=== PATIENT | female | born 2000 | race African-American/Black ===

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

== ENCOUNTER 2020-02-16 20:35 | Emergency (ER) | payer OTHER, SELFPAY ==
[~2020-02-16] VITALS: Ht 170.2 cm; Wt 65.4 kg
[~2020-02-16 20:35] MED LIST: PROT1TAB2 PO; ZOFR4TAB14 PO
[2020-02-16 20:36] VITALS: BP 145/80
[2020-02-16] MEDS ORDERED: LIDOCAINE 1% MDV 20ML VIAL IM ONE (22:15)
[2020-02-16] MEDS ORDERED: BACI500O21 TOP (22:56)
[2020-02-16] MEDS ORDERED: AUGM875T28 PO (22:56)
[2020-02-16] MEDS ORDERED: AUGMENTIN 875 MG TAB PO ONE (23:00)
== END 2020-02-16 23:10 | disposition home or self-care (01) ==
LOC: M ED 20:35
DX: S01.85XA Open bite of other part of head, initial encounter (principal); S02.5XXA Fracture of tooth (traumatic), initial encounter for closed fracture; W54.0XXA Bitten by dog, initial encounter; J45.909 Unspecified asthma, uncomplicated; Y92.9 Unspecified place or not applicable; Y93.9 Activity, unspecified; Y99.9 Unspecified external cause status

== ENCOUNTER 2020-08-18 14:21 | Emergency (ER) | payer OTHER ==
[~2020-08-18] VITALS: Ht 170.2 cm; Wt 67.7 kg
[~2020-08-18 14:21] MED LIST changes: +AUGM875T28 PO; +BACI500O21 TOP
[2020-08-18 15:07] LABS: BASO % 0.6 % (0.0-1.0); EOS # 0.2 10^3/uL (0.0-0.5); EOS % 3.1 % (0.0-3.0); HEMATOCRIT 45.3 % (36.0-47.0); HEMOGLOBIN 15.1 g/dl (12.0-15.5); LYMPH # 2.6 10^3/uL (1.5-5.0); LYMPH % 38.5 % (24.0-44.0); MEAN CORPUSCULAR HEMOGLOBIN 28.3 pg (27.0-33.0); MEAN CORPUSCULAR HGB CONC 33.3 g/dl (32.0-36.5); MONO # 0.7 10^3/uL (0.0-0.8); MONO % 10.9 % (0.0-5.0); NEUTROPHILS # 3.1 10^3/uL (1.5-8.5); NEUTROPHILS % 46.8 % (36.0-66.0); PLATELET COUNT, AUTOMATED 369 10^3/uL (150-450); RED BLOOD COUNT 5.33 10^6/uL (4.00-5.40); WHITE BLOOD COUNT 6.7 10^3/uL (4.0-10.0)
[2020-08-18 15:32] LABS: ALBUMIN 3.7 GM/DL (3.2-5.2); ALT/SGPT 22 U/L (12-78); BILIRUBIN,DIRECT 0.1 MG/DL (0.0-0.2); BILIRUBIN,TOTAL 0.4 MG/DL (0.2-1.0); BLOOD UREA NITROGEN 14 MG/DL (7-18); CALCIUM LEVEL 8.9 MG/DL (8.5-10.1); CARBON DIOXIDE LEVEL 27 MEQ/L (21-32); CHLORIDE LEVEL 105 MEQ/L (98-107); CREATININE FOR GFR 0.71 MG/DL (0.55-1.30); GLOMERULAR FILTRATION RATE > 60.0 (>60); GLUCOSE, FASTING 79 MG/DL (70-100); LIPASE 103 U/L (73-393); POTASSIUM SERUM 4.2 MEQ/L (3.5-5.1); SODIUM LEVEL 139 MEQ/L (136-145); TOTAL PROTEIN 7.9 GM/DL (6.4-8.2)
[2020-08-18 15:45] LABS: HCG, SERUM QUALITATIVE NEGATIVE (NEGATIVE)
[2020-08-18] MEDS ORDERED: PRIL20TA2 PO (15:56)
[2020-08-18 15:58] VITALS: BP 131/78
== END 2020-08-18 16:09 | disposition home or self-care (01) ==
LOC: M ED 14:21
DX: K92.2 Gastrointestinal hemorrhage, unspecified (principal); F17.200 Nicotine dependence, unspecified, uncomplicated

== ENCOUNTER 2021-09-03 10:21 | Emergency (ER) | payer OTHER, SELFPAY ==
[~2021-09-03] VITALS: Ht 170.2 cm; Wt 62.3 kg
[~2021-09-03 10:21] MED LIST changes: +PRIL20TA2 PO
[2021-09-03] MEDS ORDERED: ONDANSETRON 4 MG ORAL DISINTEGRATING TAB PO ONE (15:30)
[2021-09-03] MEDS ORDERED: ONDA4TAB6 PO (15:34)
[2021-09-03 15:47] VITALS: BP 130/77
== END 2021-09-03 15:59 | disposition home or self-care (01) ==
LOC: M ED 10:21
DX: U07.1 COVID-19 (principal)

== ENCOUNTER 2022-03-07 22:28 | Emergency (ER) | payer BC, SELFPAY ==
[~2022-03-07] VITALS: Ht 170.2 cm; Wt 63.6 kg
[~2022-03-07 22:28] MED LIST changes: +ONDA4TAB6 PO
[2022-03-08] MEDS ORDERED: KETOROLAC 60MG 2ML VIAL IM ONE (07:20)
[2022-03-08] MEDS ORDERED: LIDOCAINE 4% CREAM 5GM (LMX4) TOP ONE (07:45)
[2022-03-08] MEDS ORDERED: PERCOCET 5MG/325MG TAB PO ONE (07:45)
[2022-03-08] MEDS ORDERED: LIDOCAINE 1% MDV 20ML VIAL SC ONE (10:00)
[2022-03-08] MEDS ORDERED: IBUP-1022 PO (10:49)
[2022-03-08] MEDS ORDERED: HYDR-3713 PO (10:49)
[2022-03-08] MEDS ORDERED: LIDO1CRE2 TOP (10:50)
[2022-03-08 11:16] VITALS: BP 149/89
== END 2022-03-08 11:21 | disposition home or self-care (01) ==
LOC: EDBD 22:28 → M ED 22:28
DX: S82.142A Displaced bicondylar fracture of left tibia, initial encounter for closed fracture (principal); M25.062 Hemarthrosis, left knee; Y04.8XXA Assault by other bodily force, initial encounter; J45.909 Unspecified asthma, uncomplicated; Y92.832 Beach as the place of occurrence of the external cause; Y93.9 Activity, unspecified; Y99.9 Unspecified external cause status
CPT/HCPCS: 73564; 73700; 96372; 99284; J1885